=== PATIENT | female | born 1975 | race Caucasian/White ===

== ENCOUNTER 2017-11-13 19:48 | Emergency (ER) | payer MEDICAID, OTHER ==
[~2017-11-13] VITALS: Ht 152.4 cm; Wt 47.6 kg
[~2017-11-13 19:48] MED LIST: ALPR1T PO; CPR500T PO; METR500T PO; PRM25T PO
[2017-11-13] MEDS ORDERED: LIDOCAINE 2% 20 ML (XYLOCAINE) VIAL ONE (19:54)
[2017-11-13] MEDS ORDERED: TETANUS,DIPTH,PERTUSS P/F (BOOSTRIX) 0.5 ML VIAL IM ONE (20:00)
[2017-11-13] MEDS ORDERED: LIDOCAINE 2% 20 ML (XYLOCAINE) VIAL INJ ONE (20:00)
--- NOTE | 2017-11-13 20:21 | ED Upper Extremity ---
General Chief Complaint: Laceration Stated Complaint: R WRIST LAC Nursing Triage Note: right wrist laceration Nursing Sepsis Screen: No Definite Risk Source: patient Exam Limitations: no limitations History of Present Illness Time seen by provider: 20:17 Initial Comments To ER with a Laceration of the volar surface of the right wrist on a broken glass while washing dishes at home. Tetanus vaccination is not up-to-date Onset: just prior to arrival Severity: moderate Pain/Injury Location: right wrist Modifying Factors: Worse With Movement Allergies and Home Medications Allergies Coded Allergies: No Known Drug Allergies (Unverified , 06/17/10) Home Medications No Active Prescriptions or Reported Meds Constitutional: see HPI EENTM: see HPI ( 4-0 Prolene) Respiratory: no symptoms reported Cardiovascular: no symptoms reported Genitourinary: no symptoms reported Musculoskeletal: see HPI Skin: no symptoms reported Psychiatric/Neurological: No Symptoms Reported Past Eccioll-Xyyags-Patsje Hx Patient Social History Alcohol Use: Rarely Uses Alcohol Beverage of Choice: Wine Recreational Drug Use: No Smoking Status: Current Everyday Smoker Type Used: Cigarettes 2nd Hand Smoke Exposure: Yes Recent Foreign Travel: No Contact w/Someone Who Travel: No Recent Infectious Disease Expo: No Recent Hopitalizations: No Immunizations Up To Date Tetanus Booster (TDap): More than 5yrs Seasonal Allergies Seasonal Allergies: No Surgeries History of Surgeries: Yes (D&C) Respiratory History of Respiratory Disorde: No Cardiovascular History of Cardiac Disorders: No Neurological History of Neurological Disord: No Reproductive System : No Hx Reproductive Disorders: No Genitourinary History of Genitourinary Disor: No Gastrointestinal History of Gastrointestinal Di: No Musculoskeletal History of Musculoskeletal Dis: Yes Musculoskeletal Disorders: Arthritis Endocrine History of Endocrine Disorders: Yes HEENT History of HEENT Disorders: No Cancer History of Cancer: No Psychosocial History of Psychiatric Problem: No Integumentary History of Skin or Integumenta: No Blood Transfusions History of Blood Disorders: No Physical Exam Vital Signs Vital Sign - Last 12Hours 11/13/ 19:57 Temp 97.7 Pulse 110 Resp 18 B/P (MAP) 130/72 (91) Pulse Ox 97 O2 Delivery Room Air Capillary Refill : Less Than 3 Seconds General Appearance: WD/WN, no apparent distress HEENT: PERRL/EOMI, normal ENT inspection Neck: non-tender, full range of motion Respiratory: no respiratory distress, no accessory muscle use Gastrointestinal: normal bowel sounds, non tender Shoulder: normal inspection, non-tender Wrist: Yes limited ROM (2.5 cm laceration to the volar surface of the right wrist with depth to and through one of the flexor tendons. Despite this she remains able to flex her wrist. She reports reduced sensation to the thumb pointer middle and radial side of the ring finger. Despite this she is able to flex and extend her fingers.) Neurologic/Psychiatric: alert, normal mood/affect, oriented x 3 Skin: normal color, warm/dry Laceration Repair : Wound Location: Upper Extremities Wound Length (cm): 2.5 Wound's Depth, Shape: sub Q Wound Explored: clean Irrigated w/ Saline (ccs): 50 Betadine Prep?: Yes Volume Anesthetic (ccs): 3 Suture: Prolene, Vicryl Suture Size: 3-0, 4-0 Number of Sutures: 6 Layer Closure?: 2 Number Deep Layer Sutures: 0 Progress The fascia overlying the flexor tendon was sutured with one suture size 3-0 Vicryl. The skin was closed with 6 simple interrupted sutures size 4-0 Prolene. Progress/Results/Core Measures Results/Orders My Orders Orders - HELADIO FRY APRN Dipht,Pertuss(Acell),Tet Adult (Boostrix (11/13/17 20:00) Lidocaine 2% Injection 20 Ml (Xylocaine (11/13/17 20:00) Lidocaine 2% Injection 20 Ml (Xylocaine (11/13/17 19:54) Medications Given in ED Current Medications Medications Dose Ordered Sig/Estelita Route Start Time Stop Time Status Last Admin Dose Admin Diphtheria/ Tetanus/Acell Pertussis 0.5 ml ONCE ONCE IM 11/13/17 20:00 11/13/17 20:01 DC 11/13/17 20:07 0.5 ML Lidocaine HCl 20 ml ONCE ONCE INJ 11/13/17 20:00 11/13/17 20:01 DC 11/13/17 20:07 20 ML Vital Signs/I&O Vital Sign - Last 12Hours 11/13/17 19:57 Temp 97.7 Pulse 110 Resp 18 B/P (MAP) 130/72 (91) Pulse Ox 97 O2 Delivery Room Air Blood Pressure Mean: 91 Departure Impression Impression: Primary Impression: Median nerve injury Additional Impression: Wrist laceration Disposition: 01 HOME, SELF-CARE Condition: Stable Departure-Patient Inst. Decision time for Depature: 20:21 Referrals: DARLEEN GAMBOA MD,OPAL Hughes MD (PCP/Family) Primary Care Physician CJ BOWER MD,SALLY WAGNER,FIONA CANTRELL,CARIE SHEPPARD,VALORIE Taylor MD Patient Instructions: Laceration Repair With Stitches (DC) Add. Discharge Instructions: 1. Return to the emergency room in 7 days to have the stitches removed 2. Follow-up with the orthopedic surgeons listed. Call tomorrow to make an appointment to be seen. All discharge instructions reviewed with patient and/ or family. Voiced understanding. 3. Wear the wrist splint for the next 7 days. You may take it off to shower starting tomorrow. Scripts No Active Prescriptions or Reported Meds HELADIO FRY APRN Nov 13, 2017 20:21
[2017-11-13] MEDS ORDERED: RX-HYDROCODONE/APAP 5/325 MG #4 TAB PK PO PRN (20:30)
[2017-11-13 20:38] VITALS: BP 130/72
--- OUTSIDE RECORDS SUMMARY | 2017-11-14 03:25 | XMS REPORT ---
Author Author REBECCA TERAN Organization [employer] Address Unknown Phone Unavailable Care Team Providers Care Differential Tester Name Role Phone REBECCA TERAN CP Unavailable Allergies, Adverse Reactions, Alerts Substance Reaction Event Type N.K.D.A. Info Not Available Non Drug Allergy Problems Problem Type Condition Code Onset Dates Condition Status Problem Depressive disorder, not elsewhere classified 311 Active Problem Routine general medical examination at health care facility V70.0 Active Problem Generalized anxiety disorder 300.02 Active Assessment History of seizure Z87.898 Active Problem Anxiety state, unspecified 300.00 Active Problem Unspecified epilepsy without mention of intractable epilepsy 345.90 Active Medications No Known Medications Procedures Procedure Coding System Code Date Office Visit, Est Pt., Level 3 CPT-4 47014 Dec 09, 2015 Vital Signs Date/Time: Dec 09, 2015 Temperature 97.4 F Weight 112.5 lbs Height 60 in BMI 21.97 Index Blood Pressure Diastolic 60 mmHg Blood Pressure Systolic 112 mmHg Cardiac Monitoring Heart Rate 78 bpm Results No Known Results Summary Purpose [employer] Submission
--- OUTSIDE RECORDS SUMMARY | 2017-11-14 03:25 | XMS REPORT ---
Author Author KIM SAM [facility] [employer] Address Unknown Phone Unavailable Care Team Providers Care Verse Writer Name Role Phone KIM SAM CP Unavailable Allergies, Adverse Reactions, Alerts Substance Reaction Event Type N.K.D.A. Info Not Available Non Drug Allergy Problems Problem Type Condition Code Onset Dates Condition Status Problem Depressive disorder, not elsewhere classified 311 Active Problem Routine general medical examination at health care facility V70.0 Active Problem Generalized anxiety disorder 300.02 Active Assessment Dental examination Z01.20 Active Assessment Caries K02.9 Active Problem Anxiety state, unspecified 300.00 Active Problem Unspecified epilepsy without mention of intractable epilepsy 345.90 Active Medications Medication Code System Code Instructions Start Date End Date Status Dosage Ibuprofen NDC 0 not defined Procedures Procedure Coding System Code Date INTRAORL-PERIAPICAL 1 FILM 74729 CPT-4 D0220 Nov 25, 2015 BITEWING - SINGLE FILM CPT-4 D0270 Nov 25, 2015 LTD ORAL EVALUATION - PROBLEM FOCUS CPT-4 D0140 Nov 25, 2015 EXTRAC ERUPTED TOOTH/EXPOSED ROOT CPT-4 D7140 Nov 25, 2015 Vital Signs Date/Time: Nov 25, 2015 Blood Pressure Diastolic 76 mmHg Blood Pressure Systolic 129 mmHg Results No Known Results Summary Purpose [employer] Submission
--- OUTSIDE RECORDS SUMMARY | 2017-11-14 03:25 | XMS REPORT | Continuity of Care Document ---
Author Author [facility] Organization [facility] Address Unknown Phone Unavailable Allergies There is no data. Medications There is no data. Problems Date Dx Coded Attending Type Code Diagnosis Diagnosed By 10/29/2013 ILENE DE LA CRUZ LCPC 300.02 AN GEN ANXIETY 10/29/2013 ILENE DE LA CRUZ LCPC 300.02 AN GEN ANXIETY 10/29/2013 REBECCA TERAN APRN S 300.02 AN GEN ANXIETY 10/29/2013 REBECCA TERAN APRN S 300.02 AN GEN ANXIETY 10/29/2013 REBECCA TERAN APRN S 300.02 AN GEN ANXIETY 10/29/2013 ELDER SALAZAR, HALEY Levy 300.02 AN GEN ANXIETY 10/29/2013 KERRI TERAN APRNA S 300.02 AN GEN ANXIETY 12/18/2013 REBECCA TERAN APRN S 300.00 ANXIETY UNSPEC 12/18/2013 KERRI TERAN APRNA S V70.0 EXAM - ROUTINE H&P 12/18/2013 KERRI TERAN APRNA S 300.00 ANXIETY UNSPEC 12/18/2013 KERRI TERAN APRNA S V70.0 EXAM - ROUTINE H&P 12/18/2013 KERRI TERAN APRNA S 300.00 ANXIETY UNSPEC 12/18/2013 KERRI TERAN APRNA S V70.0 EXAM - ROUTINE H&P 12/18/2013 HALEY FRIEDMAN PHD 300.00 ANXIETY UNSPEC 12/18/2013 HALEY FRIEDMAN PHD V70.0 EXAM - ROUTINE H&P 12/18/2013 REBECCA TERAN APRN S 300.00 ANXIETY UNSPEC 12/18/2013 REBECCA TERAN APRN S V70.0 EXAM - ROUTINE H&P 01/20/2014 REBECCA TERAN APRN 345.90 SEIZURE DISORDER 01/20/2014 HALEY FRIEDMAN PHD 345.90 SEIZURE DISORDER 01/20/2014 REBECCA TERAN APRN 345.90 SEIZURE DISORDER 02/11/2014 ELDER SALAZAR, HALEY Levy 311 MO DEPRESS NOS 02/11/2014 REBECCA TERAN APRN 311 MO DEPRESS NOS Procedures Code [place] [address] PSYCH DIAGNOSTIC EVALUATION 11/01/2013 68809 PSYTX PT&/FAMILY 45 MINUTES 12/02/2013 93268 ROUTINE VENIPUNCTURE 12/18/2013 16942 CBC 12/18/2013 73476 CMP 12/18/2013 [id number] GFR CALC (RESULT ONLY) 12/18/2013 17567 TSH 12/18/2013 12497 PSYTX PT&/FAMILY 45 MINUTES 02/12/2014 Results There is no data. Encounters ACCT No. Visit Date/Time Discharge Status Pt. Type Provider Facility Loc./Unit Complaint [id number] 06/06/2013 11:11:00 06/06/2013 23:59:59 CLS Outpatient [id number] 02/26/2015 12:28:00 02/26/2015 23:59:59 CLS Outpatient KERRI TERAN APRNA S [id number] 02/11/2014 15:57:00 02/11/2014 23:59:59 CLS Outpatient HALEY FRIEDMAN PHD [id number] 01/20/2014 14:52:00 01/20/2014 23:59:59 CLS Outpatient KERRI TERAN APRNA S [id number] 12/18/2013 13:47:00 12/18/2013 23:59:59 CLS Outpatient REBECCA TERAN APRN S [id number] 12/18/2013 13:47:00 12/18/2013 23:59:59 CLS Outpatient MARIA GUADALUPE TERAN APRNNDA S [id number] 11/26/2013 11:24:00 11/26/2013 23:59:59 CLS Outpatient ILENE DE LA CRUZ LCPC [id number] 10/29/2013 14:05:00 10/29/2013 23:59:59 CLS Outpatient ILENE DE LA CRUZ LCPC
--- OUTSIDE RECORDS SUMMARY | 2017-11-14 03:25 | XMS REPORT ---
Author Author REBECCA TERAN Organization [employer] Address Unknown Phone Unavailable Care Team Providers Care Manager Integrated Name Role Phone REBECCA TERAN CP Unavailable Allergies No Known Allergies Problems Problem Type Condition Code Onset Dates Condition Status Problem Depressive disorder, not elsewhere classified 311 Active Problem Routine general medical examination at health care facility V70.0 Active Problem Generalized anxiety disorder 300.02 Active Problem Anxiety state, unspecified 300.00 Active Problem Unspecified epilepsy without mention of intractable epilepsy 345.90 Active Medications No Known Medications Results No Known Results Summary Purpose [employer] Submission
== END 2017-11-13 20:38 | disposition home or self-care (01) ==
LOC: EDUNIT# 19:48 → ER 19:50
DX: S61.511A Laceration without foreign body of right wrist, initial encounter (principal); S64.12XA Injury of median nerve at wrist and hand level of left arm, initial encounter; M19.90 Unspecified osteoarthritis, unspecified site; F17.210 Nicotine dependence, cigarettes, uncomplicated; W25.XXXA Contact with sharp glass, initial encounter; Y92.009 Unspecified place in unspecified non-institutional (private) residence as the place of occurrence of the external cause
CPT/HCPCS: 12002; 90471; 90715

== ENCOUNTER 2017-11-22 15:41 | Emergency (ER) | payer MEDICAID ==
[~2017-11-22] VITALS: Ht 152.4 cm; Wt 47.6 kg
--- OUTSIDE RECORDS SUMMARY | 2017-11-22 15:46 | XMS REPORT | Continuity of Care Document ---
Author Author [facility] Organization [facility] Address Unknown Phone Unavailable Allergies Active Description Code Type Severity Reaction Onset Reported/Identified Relationship to Patient Clinical Status Yes No Known Drug Allergies [id number] Drug Allergy Unknown N/A 06/17/2010 Medications There is no data. Problems Date Dx Coded Attending Type Code Diagnosis Diagnosed By 10/29/2013 ILENE DE LA CRUZ LCPC 300.02 AN GEN ANXIETY 10/29/2013 ILENE DE LA CRUZ LCPC 300.02 AN GEN ANXIETY 10/29/2013 REBECCA TERAN APRN S 300.02 AN GEN ANXIETY 10/29/2013 REBECCA TERAN APRN S 300.02 AN GEN ANXIETY 10/29/2013 KERRI TERAN APRNA S 300.02 AN GEN ANXIETY 10/29/2013 HALEY FRIEDMAN PHD 300.02 AN GEN ANXIETY 10/29/2013 KERRI TERAN APRNA S 300.02 AN GEN ANXIETY 12/18/2013 KERRI TERAN APRNA S 300.00 ANXIETY UNSPEC 12/18/2013 KERRI TERAN APRNA S V70.0 EXAM - ROUTINE H&P 12/18/2013 KERRI TERAN APRNA S 300.00 ANXIETY UNSPEC 12/18/2013 KERRI TERAN APRNA S V70.0 EXAM - ROUTINE H&P 12/18/2013 KERRI TERAN APRNA S 300.00 ANXIETY UNSPEC 12/18/2013 KERRI TERAN APRNA S V70.0 EXAM - ROUTINE H&P 12/18/2013 ELDER SALAZAR, HALEY Levy 300.00 ANXIETY UNSPEC 12/18/2013 ELDER SALAZAR, HALEY Levy V70.0 EXAM - ROUTINE H&P 12/18/2013 KERRI TERAN APRNA S 300.00 ANXIETY UNSPEC 12/18/2013 REBECCA TERAN APRN S V70.0 EXAM - ROUTINE H&P 01/20/2014 REBECCA TERAN APRN 345.90 SEIZURE DISORDER 01/20/2014 HALEY FRIEDMAN PHD 345.90 SEIZURE DISORDER 01/20/2014 REBECCA TERAN APRN 345.90 SEIZURE DISORDER 02/11/2014 HALEY FRIEDMAN PHD 311 MO DEPRESS NOS 02/11/2014 REBECCA TERAN APRN 311 MO DEPRESS NOS Procedures Code [place] [address] PSYCH DIAGNOSTIC EVALUATION 11/01/2013 87212 PSYTX PT&/FAMILY 45 MINUTES 12/02/2013 95138 ROUTINE VENIPUNCTURE 12/18/2013 59816 CBC 12/18/2013 31358 CMP 12/18/2013 [id number] GFR CALC (RESULT ONLY) 12/18/2013 72921 TSH 12/18/2013 59247 PSYTX PT&/FAMILY 45 MINUTES 02/12/2014 Results There is no data. Encounters ACCT No. Visit Date/Time Discharge Status Pt. Type Provider Facility Loc./Unit Complaint [id number] 11/13/2017 19:50:00 11/13/2017 20:38:00 DIS Emergency HELADIO FRY APRN [facility] ER R WRIST LAC [id number] 06/06/2013 11:11:00 06/06/2013 23:59:59 CLS Outpatient [id number] 02/26/2015 12:28:00 02/26/2015 23:59:59 CLS Outpatient REBECCA TERAN APRN [id number] 02/11/2014 15:57:00 02/11/2014 23:59:59 CLS Outpatient HALEY FRIEDMAN PHD [id number] 01/20/2014 14:52:00 01/20/2014 23:59:59 CLS Outpatient REBECCA TERAN APRN [id number] 12/18/2013 13:47:00 12/18/2013 23:59:59 CLS Outpatient REBECCA TERAN APRN [id number] 12/18/2013 13:47:00 12/18/2013 23:59:59 CLS Outpatient REBECCA TERAN APRN [id number] 11/26/2013 11:24:00 11/26/2013 23:59:59 CLS Outpatient ILENE DE LA CRUZ LCPC [id number] 10/29/2013 14:05:00 10/29/2013 23:59:59 [facility] Outpatient ILENE DE LA CRUZ LCPC
[2017-11-22 16:10] VITALS: BP 124/74
== END 2017-11-22 16:20 | disposition home or self-care (01) ==
LOC: EDUNIT# 15:41 → ER 15:42
DX: S61.512D Laceration without foreign body of left wrist, subsequent encounter (principal); X58.XXXD Exposure to other specified factors, subsequent encounter

== ENCOUNTER 2022-06-05 16:12 | Emergency (ER) | payer SELFPAY ==
[~2022-06-05] VITALS: Ht 152 cm; Wt 48.0 kg
[2022-06-05] MEDS ORDERED: NS IV 1000 ML 1,000 ML IV STA (16:50)
[2022-06-05 16:58] LABS: BASOPHILS # (AUTO) 0.1 10^3/uL (0.0-0.1); BASOPHILS % (AUTO) 0 % (0-10); EOSINOPHILS % (AUTO) 0 % (0-10); HEMATOCRIT 43 % (35-52); HEMOGLOBIN 13.6 g/dL (11.5-16.0); LYMPHOCYTES # (AUTO) 1.3 10^3/uL (1.0-4.0); LYMPHOCYTES % (AUTO) 10 % (12-44); MEAN CORPUSCULAR HEMOGLOBIN 26 pg (25-34); MEAN CORPUSCULAR HGB CONC 32 g/dL (32-36); MEAN CORPUSCULAR VOLUME 83 fL (80-99); MEAN PLATELET VOLUME 9.2 fL (9.0-12.2); MONOCYTES # (AUTO) 0.5 10^3/uL (0.0-1.0); MONOCYTES % (AUTO) 4 % (0-12); NEUTROPHILS # (AUTO) 10.8 10^3/uL (1.8-7.8); NEUTROPHILS % (AUTO) 85 % (42-75); PLATELET COUNT 420 10^3/uL (130-400); WHITE BLOOD COUNT 12.7 10^3/uL (4.3-11.0)
--- NOTE | 2022-06-05 16:59 | ED Abdominal Pain ---
General Chief Complaint: Abdominal/GI Problems Stated Complaint: BACK AND STOMACH PAIN Nursing Triage Note: ARRIVED VIA AMB WITH COMPLAINTS OF RIGHT SIDED FLANK PAIN THAT STARTED AT MIDNIGHT. PT ALSO COMPLAINS OF N/V WITH THE PAIN. Source of Information: Patient Exam Limitations: No Limitations (MONTRELL TRUJILLO) History of Present Illness Date Seen by Provider: Jun 05, 2022 Time Seen by Provider: 16:55 Initial Comments This is a 46 year old female that presents for evaluation of abdominal pain, nausea and vomiting. She states her symptoms started at midnight last night and have been persistent all day. She has never had anything like this before. Her pain is mostly generalized, but she also reports having some right flank pain. Timing/Duration: 1 Day Severity/Quality: Moderate (MONTRELL TRUJILLO) Allergies and Home Medications Allergies Coded Allergies: No Known Drug Allergies (Unverified , 06/17/10) Patient Home Medication List Home Medication List Reviewed: Yes (MONTRELL TRUJILLO) Hydrocodone/Acetaminophen (Hydrocodone-Acetamin 5-325 mg) 5 Mg-325 Mg Tablet, 1 TAB PO Q6H PRN for PAIN-MODERATE (5-7) Prescribed by: Piyush Trujillo on 06/05/22 1834 Ondansetron (Ondansetron Odt) 4 Mg Tab.rapdis, 4 MG PO TID Prescribed by: Piyush Trujillo on 06/05/22 1716 Tamsulosin HCl (Flomax) 0.4 Mg Cap, 0.4 MG PO DAILY Prescribed by: Piyush Trujillo on 06/05/22 1833 Review of Systems Review of Systems Constitutional: no symptoms reported EENTM: No Symptoms Reported Respiratory: No Symptoms Reported Cardiovascular: No Symptoms Reported Gastrointestinal: Abdominal Pain, Nausea, Vomiting Genitourinary: No Symptoms Reported Musculoskeletal: no symptoms reported Skin: no symptoms reported Psychiatric/Neurological: No Symptoms Reported Endocrine: No Symptoms Reported (MONTRELL TRUJILLO) Past Qmzmtbz-Uvssmk-Pxdvje Hx Patient Social History Smoking Status: Current Everyday Smoker Substance use?: No Alcohol Use?: No (MONTRELL TRUJILLO) Immunizations Up To Date Tetanus Booster (TDap): More than 5yrs (MONTRELL TRUJILLO) Seasonal Allergies Seasonal Allergies: No (MONTRELL TRUJILLO) Past Medical History Surgeries: Yes (D&C) Respiratory: No Cardiac: No Neurological: No Reproductive Disorders: No Genitourinary: No Gastrointestinal: No Musculoskeletal: Yes Arthritis Endocrine: Yes HEENT: No Cancer: No Psychosocial: No Integumentary: No Blood Disorders: No (MONTRELL TRUJILLO) Physical Exam Vital Signs Vital Signs - First Documented 06/05/22 06/05/22 16:25 18:37 Temp 36.3 Pulse 74 Resp 16 B/P (MAP) 138/95 (109) Pulse Ox 100 O2 Delivery Room Air (LUIS ALFREDO AMARO MD) Vital Signs Capillary Refill : Less Than 3 Seconds (MONTRELL TRUJILLO) Height/Weight/BMI Height: 5'0" Weight: 105lbs. oz. 47.685330sc; 20.00 BMI Method:Stated General Appearance: WD/WN, no apparent distress HEENT: PERRL/EOMI, normal ENT inspection, TMs normal, pharynx normal Neck: non-tender, full range of motion Respiratory: chest non-tender, lungs clear Cardiovascular: tachycardia Gastrointestinal: normal bowel sounds, tenderness (Mild tenderness throughout the abdomen without significant guarding or rebound tenderness.) Extremities: normal range of motion, non-tender Back: CVA tenderness (R) Neurologic/Psychiatric: chain maker loom control II-XII nml as tested, oriented x 3 Skin: normal color (MONTRELL TRUJILLO) Procedures/Interventions Suture Size: 3-0, 4-0 (MONTRELL TRUJILLO) Progress/Results/Core Measures Results/Orders Lab Results Laboratory Tests Test 06/05/22 16:35 06/05/22 17:10 Range/Units White Blood Count 12.7 H 4.3-11.0 10^3/uL Red Blood Count 5.15 H 3.80-5.11 10^6/uL Hemoglobin 13.6 11.5-16.0 g/dL Hematocrit 43 35-52 % Mean Corpuscular Volume 83 80-99 fL Mean Corpuscular Hemoglobin 26 25-34 pg Mean Corpuscular Hemoglobin Concent 32 32-36 g/dL Red Cell Distribution Width 18.8 H 10.0-14.5 % Platelet Count 420 H 130-400 10^3/uL Mean Platelet Volume 9.2 9.0-12.2 fL Immature Granulocyte % (Auto) 0 % Neutrophils (%) (Auto) 85 H 42-75 % Lymphocytes (%) (Auto) 10 L 12-44 % Monocytes (%) (Auto) 4 0-12 % Eosinophils (%) (Auto) 0 0-10 % Basophils (%) (Auto) 0 0-10 % Neutrophils # (Auto) 10.8 H 1.8-7.8 10^3/uL Lymphocytes # (Auto) 1.3 1.0-4.0 10^3/uL Monocytes # (Auto) 0.5 0.0-1.0 10^3/uL Eosinophils # (Auto) 0.0 0.0-0.3 10^3/uL Basophils # (Auto) 0.1 0.0-0.1 10^3/uL Immature Granulocyte # (Auto) 0.1 0.0-0.1 10^3/uL Sodium Level 140 135-145 MMOL/L Potassium Level 3.9 3.6-5.0 MMOL/L Chloride Level 104 98-107 MMOL/L Carbon Dioxide Level 21 21-32 MMOL/L Anion Gap 15 H 5-14 MMOL/L Blood Urea Nitrogen 14 7-18 MG/DL Creatinine 0.75 0.60-1.30 MG/DL Estimat Glomerular Filtration Rate 101 BUN/Creatinine Ratio 19 Glucose Level 106 H 70-105 MG/DL Calcium Level 9.8 8.5-10.1 MG/DL Corrected Calcium 8.5-10.1 MG/DL Total Bilirubin 0.6 0.1-1.0 MG/DL Aspartate Amino Transf (AST/SGOT) 15 5-34 U/L Alanine Aminotransferase (ALT/SGPT) 21 0-55 U/L Alkaline Phosphatase 58 40-136 U/L Total Protein 8.0 6.4-8.2 GM/DL Albumin 4.9 H 3.2-4.5 GM/DL Lipase 13 8-78 U/L Serum Test, Qualitative NEGATIVE NEGATIVE Urine Color YELLOW Urine Clarity CLEAR Urine pH 5.5 5-9 Urine Specific [place] >=1.030 1.016-1.022 Urine Protein 1+ H NEGATIVE Urine Glucose (UA) NEGATIVE NEGATIVE Urine Ketones 3+ H NEGATIVE Urine Nitrite NEGATIVE NEGATIVE Urine Bilirubin NEGATIVE NEGATIVE Urine Urobilinogen 0.2 < = 1.0 MG/DL Urine Leukocyte Esterase NEGATIVE NEGATIVE Urine RBC (Auto) 3+ H NEGATIVE Urine RBC 50-100 H /HPF Urine WBC 2-5 /HPF Urine Squamous Epithelial Cells 2-5 /HPF Urine Crystals NONE /LPF Urine Bacteria FEW H /HPF Urine Casts NONE /LPF Urine Mucus MODERATE H /LPF Urine Yeast FEW H /HPF Urine Culture Indicated YES (LUIS ALFREDO AMARO MD) Micro Results Microbiology 06/05/22 Urine Culture - Final, Complete Gram Pos Mixed Bacterial Michell (LUIS ALFREDO AMARO MD) Vital Signs/I&O 06/05/22 06/05/22 16:25 18:37 Temp 36.3 Pulse 74 63 Resp 16 16 B/P (MAP) 138/95 (109) 128/88 Pulse Ox 100 98 O2 Delivery Room Air (LUIS ALFREDO AMARO MD) Blood Pressure Mean: 109 Departure Communication (Admissions) Patient has an acute kidney stone without secondary infection. Will treat symptomatically and she will follow-up with her urologist. She agrees to return if worse. (MONTRELL TRUJILLO) Impression Primary Impression: Abdominal pain Additional Impressions: Nausea and vomiting Calculus of kidney Disposition: HOME, SELF-CARE Condition: Stable Departure-Patient Inst. Decision time for Depature: 18:30 (MONTRELL TRUJILLO) Referrals: YADIEL MARTINEZ MD Patient Instructions: Nausea and Vomiting, Adult, Renal Colic (DC) Add. Discharge Instructions: Please follow-up with the urologist as we discussed. Return to the emergency room with any severe changes or worsening of symptoms. All discharge instructions reviewed with patient and/or family. Voiced understanding. Scripts Hydrocodone/Acetaminophen (Hydrocodone-Acetamin 5-325 mg) 5 Mg-325 Mg Tablet 1 TAB PO Q6H PRN for PAIN-MODERATE (5-7) for 5 Days, #20 TAB Prov: MONTRELL TRUJILLO 06/05/22 Tamsulosin HCl (Flomax) 0.4 Mg Cap 0.4 MG PO DAILY for 10 Days, #10 CAP Prov: MONTRELL TRUJILLO 06/05/22 Ondansetron (Ondansetron Odt) 4 Mg Tab.rapdis 4 MG PO TID for Nausea, #14 TAB Prov: MONTRELL TRUJILLO 06/05/22 ATTENDING PHYSICIAN NOTE: I was physically present as attending physician in the emergency department during the care of this patient, but I was not directly involved in the decision making or delivery of care for this patient. (LUIS ALFREDO AMARO MD) MONTRELL TRUJILLO Jun 05, 2022 16:59 LUIS ALFREDO AMARO MD Jun 07, 2022 18:14
[2022-06-05] MEDS ORDERED: morphine INJ 4 MG/ML 1 ML (VIAL/SYRINGE) IVP ONE (17:00)
[2022-06-05] MEDS ORDERED: morphine INJ 10 MG/ML 1ML (SYR OR VIAL) IVP ONE (17:00)
[2022-06-05] MEDS ORDERED: ONDANSETRON 4 MG/2 ML (SDV) Z0FRAN IVP ONE (17:00)
[2022-06-05 17:01] LABS: ALBUMIN 4.9 GM/DL (3.2-4.5)
[2022-06-05 17:02] LABS: CHLORIDE 104 MMOL/L (98-107); POTASSIUM 3.9 MMOL/L (3.6-5.0); SODIUM 140 MMOL/L (135-145)
[2022-06-05 17:03] LABS: CALCIUM 9.8 MG/DL (8.5-10.1)
[2022-06-05 17:04] LABS: GLUCOSE 106 MG/DL (70-105)
[2022-06-05 17:05] LABS: CARBON DIOXIDE 21 MMOL/L (21-32)
[2022-06-05 17:06] LABS: BILIRUBIN,TOTAL 0.6 MG/DL (0.1-1.0)
[2022-06-05 17:07] LABS: ALKALINE PHOSPHATASE 58 U/L (40-136)
[2022-06-05 17:08] LABS: CREATININE SERUM 0.75 MG/DL (0.60-1.30); GFR ESTIMATED 101
[2022-06-05 17:09] LABS: BUN/CREATININE RATIO 19
[2022-06-05 17:11] LABS: ALANINE AMINOTRANSFERASE 21 U/L (0-55); LIPASE 13 U/L (8-78)
[2022-06-05 17:16] LABS: BILIRUBIN,URINE NEGATIVE (NEGATIVE); CLARITY,URINE CLEAR; COLOR,URINE YELLOW; GLUCOSE, URINE (UA) NEGATIVE (NEGATIVE); KETONES,URINE 3+ (NEGATIVE); LEUKOCYTE ESTERASE ,URINE NEGATIVE (NEGATIVE); NITRITE,URINE NEGATIVE (NEGATIVE); PH,URINE 5.5 (5-9); PROTEIN,URINE 1+ (NEGATIVE)
[2022-06-05] MEDS ORDERED: ONDA4TAB11 PO (17:16)
[2022-06-05 17:24] LABS: BACTERIA,URINE FEW /HPF; RBC,URINE 50-100 /HPF
[2022-06-05 17:25] LABS: YEAST,URINE FEW /HPF
[2022-06-05] MEDS ORDERED: NS 100 ML (IVPB) BAG IV ONE (17:45)
[2022-06-05] MEDS ORDERED: IOHEXOL 350 MG/ML 100 ML (OMNIPAQUE 350) VIAL IV ONE (17:45)
--- NOTE | 2022-06-05 18:07 | Diagnostic Imaging Report ---
PROCEDURE: CT abdomen and pelvis with contrast. TECHNIQUE: Multiple contiguous axial images were obtained through the abdomen and pelvis after administration of intravenous contrast. Auto Exposure Controls were utilized during the CT exam to meet ALARA standards for radiation dose reduction. All CT scans use one or more of the following dose optimizing techniques: automated exposure control, MA and/or KvP adjustment based on patient size and exam type or iterative reconstruction. INDICATION: Abdominal pain. FINDINGS: The heart size is normal. The lung bases are clear. The liver is normal in size and without focal lesion. Gallbladder is unremarkable. There is no biliary ductal dilatation. Spleen is normal. The pancreas and adrenal glands are unremarkable. There appears to be some mild right hydronephrosis. There are several small calcifications in the pelvis, likely phleboliths although there is a stone near the right UVJ measuring 2-3 mm. The possibility of this being within the ureter cannot be excluded. Left kidney is normal. Aorta is nonaneurysmal. The bowel gas pattern is otherwise nonspecific. There is no free air. There is no ascites. There is no focal inflammatory change. There is no pelvic mass, adenopathy or free fluid. The osseous structures are unremarkable. IMPRESSION: 1. Questionable mild right hydronephrosis with a stone seen near the right UVJ measuring 2-3 mm. While this could conceivably reflect a phlebolith, the possibility of a distal right ureteral stone near the UVJ cannot be excluded. Recommend clinical correlation. 2. Otherwise unremarkable CT abdomen and pelvis. Dictated by: Dictated on workstation # [id number]
[2022-06-05] MEDS ORDERED: KETOROLAC 30 MG/ML VIAL IV ONE (18:30)
[2022-06-05] MEDS ORDERED: ACHD5005 PO (18:33)
[2022-06-05] MEDS ORDERED: TMSL.4C PO (18:33)
[2022-06-05 18:37] VITALS: BP 128/88
== END 2022-06-05 18:37 | disposition home or self-care (01) ==
LOC: EDUNIT# 16:12 → ER 16:13
DX: N20.0 Calculus of kidney (principal); F17.200 Nicotine dependence, unspecified, uncomplicated; Z28.310 Unvaccinated for COVID-19; Z32.02 Encounter for pregnancy test, result negative
CPT/HCPCS: 36415; 74177; 80053; 81000; 83690; 84703; 85025; 87088